=== PATIENT | male | born 1965 | race African-American/Black ===

== ENCOUNTER 2017-12-16 20:37 | Observation (INO) | payer SELFPAY ==
[~2017-12-16] VITALS: Ht 190.5 cm; Wt 90.5 kg
[2017-12-16 20:51] VITALS: BP 156/72; PULSE 97; RESP 25; TEMP 97.2; O2SAT 100
[2017-12-16 21:14] VITALS: BP 124/61; PULSE 88; RESP 18; O2SAT 100
[2017-12-16] MEDS ORDERED: SODIUM CHLORIDE 0.9% FLUSH 10 ML FLUSH IV FLUSH PRN (21:30)
[2017-12-16] MEDS ORDERED: ASPIRIN 81 MG CHEW TAB CHEW ONE (21:30)
[2017-12-16 21:44] VITALS: RESP 18
[2017-12-16 21:46] VITALS: BP 121/68; PULSE 77; RESP 20; O2SAT 99
[2017-12-16 22:18] LABS: AUTOMATED NEUTROPHIL # 2.5 TH/MM3 (1.8-7.7); BASOPHIL # 0.1 TH/MM3 (0-0.2); BASOPHIL % 0.8 % (0.0-2.0); EOSINOPHIL # 0.3 TH/MM3 (0-0.4); EOSINOPHIL % 3.7 % (0.0-4.0); HEMATOCRIT 40.5 % (39.0-51.0); HEMOGLOBIN 13.5 GM/DL (13.0-17.0); LYMPH % 52.8 % (9.0-44.0); LYMPHOCYTE # 3.9 TH/MM3 (1.0-4.8); MEAN CELL VOLUME 96.1 FL (80.0-100.0); MEAN CORPUSCULAR HGB CONC 33.3 % (32.0-36.0); MEAN PLATELET VOLUME 8.7 FL (7.0-11.0); MONO % 8.2 % (0.0-8.0); MONOCYTE # 0.6 TH/MM3 (0-0.9); NEUT % 34.5 % (16.0-70.0); PLATELET COUNT 196 TH/MM3 (150-450); RED BLOOD COUNT 4.22 MIL/MM3 (4.50-5.90); RED CELL DISTRIBUTION WIDTH 14.9 % (11.6-17.2); WHITE BLOOD COUNT 7.4 TH/MM3 (4.0-11.0)
[2017-12-16 22:35] LABS: ALBUMIN 3.7 GM/DL (3.4-5.0); ALT (GPT) 33 U/L (12-78); AST (GOT) 31 U/L (15-37); BICARBONATE 26.5 MEQ/L (21.0-32.0); BLOOD UREA NITROGEN 21 MG/DL (7-18); CALCIUM 8.6 MG/DL (8.5-10.1); CHLORIDE 108 MEQ/L (98-107); CREATININE 1.04 MG/DL (0.60-1.30); GLOMERULAR FILTRATION RATE 91 ML/MIN (>89); GLUCOSE,RANDOM 76 MG/DL (74-106); SODIUM (NA) 143 MEQ/L (136-145)
[2017-12-16 22:38] LABS: PROTHROMBIN TIME - PATIENT 10.3 SEC (9.8-11.6)
[2017-12-16 22:44] LABS: ALKALINE PHOSPHATASE 52 U/L (45-117); TOTAL BILIRUBIN ADULT 0.4 MG/DL (0.2-1.0); TROPONIN I LESS THAN 0.02 NG/ML (0.02-0.05)
--- NOTE | 2017-12-16 22:45 | RADRPT ---
EXAM DATE/TIME: 12/16/2017 22:13 [facility] COMPARISON: No previous studies available for comparison. INDICATIONS : Trauma; fall. RADIATION DOSE: 41.21 CTDIvol (mGy) MEDICAL HISTORY : Hypertension. Cardiovascular disease SURGICAL HISTORY : None. ENCOUNTER: Initial ACUITY: 1 day PAIN SCALE: 5/10 LOCATION: cranial TECHNIQUE: Multiple contiguous axial images were obtained of the head. Using automated exposure control and adj ustment of the mA and/or kV according to patient size, radiation dose was kept as low as reasonably a chievable to obtain optimal diagnostic quality images. DICOM format image data is available electro nically for review and comparison. FINDINGS: CEREBRUM: Extensive artifact from hardware right side of face. Ventricle size is appropriate. There is no cli nical hemorrhage. No extra-axial fluid collection appreciated. POSTERIOR FOSSA: The cerebellum and brainstem are intact. The 4th ventricle is midline. The cerebellopontine angle i s unremarkable. EXTRACRANIAL: The visualized portion of the orbits is intact. SKULL: The calvaria is intact. No evidence of skull fracture. CONCLUSION: Significant artifact from metal left side of face. Negative for an acute process. S ubtle subarachnoid hemorrhage in posterior fossa processes not be excluded. Nigel Eaton MD FACR on December 16, 2017 at 22:42 Board Certified Radiologist. This report was verified electronically.
--- NOTE | 2017-12-16 22:48 | RADRPT ---
EXAM DATE/TIME: 12/16/2017 22:13 [facility] COMPARISON: No previous studies available for comparison. INDICATIONS : Trauma; fall. RADIATION DOSE: 17.70 CTDIvol (mGy) MEDICAL HISTORY : Cardiovascular disease. Hypertension. SURGICAL HISTORY : None. ENCOUNTER: Initial ACUITY: 1 day PAIN SCALE: 5/10 LOCATION: Bilateral neck TECHNIQUE: Volumetric scanning of the cervical spine was performed. Multiplanar reconstructions in the sagittal, coronal and oblique axial planes were performed. Using automated exposure control and adjustment o f the mA and/or kV according to patient size, radiation dose was kept as low as reasonably achievable to obtain optimal diagnostic quality images. DICOM format image data is available electronically f or review and comparison. FINDINGS: VERTEBRAE: There is reversal of the normal cervical lordosis. Osteophytosis is present. ALIGNMENT: No evidence of subluxation. C2-C3: The bony spinal canal is normal in size. No evidence of disc bulge or herniation. The neural forami na are bilaterally patent. C3-C4: The bony spinal canal is normal in size. No evidence of disc bulge or herniation. The neural forami na are bilaterally patent. C4-C5: Mild uncinate ridging is present with mild bilateral neural foramina encroachment worse on the right than the left. C5-C6: Moderate uncinate ridging is present with moderate spinal stenosis and bilateral neural foramina encr oachment. C6-C7: The bony spinal canal is normal in size. No evidence of disc bulge or herniation. The neural forami na are bilaterally patent. C7-T1: The bony spinal canal is normal in size. No evidence of disc bulge or herniation. The neural forami na are bilaterally patent. CONCLUSION: Reversal of the normal cervical lordosis. Moderate degenerative change in the cervical spine. Spina l stenosis at C5-C6 is moderate. Nigel Eaton MD FACR on December 16, 2017 at 22:43 Board Certified Radiologist. This report was verified electronically.
--- NOTE | 2017-12-16 23:01 | PD ---
HPI Chief Complaint: Neuro Symptoms/ Deficits Time Seen by Provider: 21:06 Travel History International Travel<30 days: No Contact w/Intl Traveler<30days: No Traveled to known affect area: No History of Present Illness HPI Patient is a 52-year-old male smoker former diabetic but states he lost so much weight he does not need any treatment anymore presents emergency department for 2-3 day history of weakness of his left upper and left lower extremity as well as numbness and tingling on his face. Patient denies any injury, denies any headache denies any visual difficulties or facial weakness. He was hoping that he just had a strained muscle in his shoulder but does not recall any over exertion. Endorses some mild neck pain as well. States is never happened to him before. He does have a history of coronary artery disease. 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 Symptoms moderate, waxing and waning, context and associated signs and symptoms as above. PFSH Past Medical History Cardiovascular Problems: Yes (HTN, MIx4) Diabetes: Yes Patient Takes Glucophage: No Hypertension: Yes Immunizations Current: Yes Triglycerides - High: Yes Tetanus Vaccination: < 5 Years Influenza Vaccination: Yes Social History Alcohol Use: Yes (socially) Tobacco Use: Yes Substance Use: No Allergies-Medications (Allergen,Severity, Reaction): Coded Allergies: Sulfa (Sulfonamide Antibiotics) (Verified Allergy, Unknown, 12/16/17) erythromycin base (Verified Allergy, Unknown, 12/16/17) Review of Systems Except as stated in HPI: all other systems reviewed are Neg Physical Exam Narrative GENERAL: Well-developed well-nourished, smells of cigarette smoke in no obvious distress SKIN: Focused skin assessment warm/dry. HEAD: Atraumatic. Normocephalic. EYES: Pupils equal and round. No scleral icterus. No injection or drainage. ENT: No nasal bleeding or discharge. Mucous membranes pink and moist. NECK: Trachea midline. No JVD. CARDIOVASCULAR: Regular rate and rhythm. No murmur appreciated. RESPIRATORY: No accessory muscle use. Clear to auscultation. Breath sounds equal bilaterally. GASTROINTESTINAL: Abdomen soft, non-tender, nondistended. Hepatic and splenic margins not palpable. MUSCULOSKELETAL: No obvious deformities. No clubbing. No cyanosis. No edema. NEUROLOGICAL: Awake and alert. Cranial nerves II through XII grossly intact and nonfocal, 5 out of 5 strength in all 4 extremities, cerebellar testing negative, ambulates with an even narrow-base gait. PSYCHIATRIC: Appropriate mood and affect; insight and judgment normal. Data Data Last Documented VS Vital Signs Date Time Temp Pulse Resp B/P (MAP) Pulse Ox O2 Delivery O2 Flow Rate FiO2 12/16/17 21:46 77 20 121/68 (85) 99 Room Air 12/16/17 20:51 97.2 Orders Orders Complete Blood Count With Diff (12/16/17 21:28) Comprehensive Metabolic Panel (12/16/17 21:28) Creatine Kinase (Cpk) (12/16/17 21:28) Prothrombin Time / Inr (Pt) (12/16/17 21:28) Act Partial Throm Time (Ptt) (12/16/17 21:28) Troponin I (12/16/17 21:28) Thyroid Stimulating Hormone (12/16/17 21:28) Urinalysis - C+S If Indicated (12/16/17 21:28) Ct Brain W/O Iv Contrast(Rout) (12/16/17 21:28) Blood Glucose (12/16/17 21:28) Ecg Monitoring (12/16/17 21:28) Iv Access Insert/Monitor (12/16/17 21:28) Oximetry (12/16/17 21:28) Sodium Chloride 0.9% Flush (Ns Flush) (12/16/17 21:30) Aspirin Chew (Aspirin Chew) (12/16/17 21:30) Ct Cerv Spine W/O Contrast (12/16/17 ) CKMB (12/16/17 21:30) CKMB% (12/16/17 21:30) Admit Order (Ed Use Only) (12/17/17 ) Labs Laboratory Tests Test 12/16/17 21:30 White Blood Count 7.4 TH/MM3 Red Blood Count 4.22 MIL/MM3 Hemoglobin 13.5 GM/DL Hematocrit 40.5 % Mean Corpuscular Volume 96.1 FL Mean Corpuscular Hemoglobin 32.0 PG Mean Corpuscular Hemoglobin Concent 33.3 % Red Cell Distribution Width 14.9 % Platelet Count 196 TH/MM3 Mean Platelet Volume 8.7 FL Neutrophils (%) (Auto) 34.5 % Lymphocytes (%) (Auto) 52.8 % Monocytes (%) (Auto) 8.2 % Eosinophils (%) (Auto) 3.7 % Basophils (%) (Auto) 0.8 % Neutrophils # (Auto) 2.5 TH/MM3 Lymphocytes # (Auto) 3.9 TH/MM3 Monocytes # (Auto) 0.6 TH/MM3 Eosinophils # (Auto) 0.3 TH/MM3 Basophils # (Auto) 0.1 TH/MM3 CBC Comment DIFF FINAL Differential Comment Prothrombin Time 10.3 SEC Prothromb Time International Ratio 1.0 RATIO Activated Partial Thromboplast Time 25.7 SEC Blood Urea Nitrogen 21 MG/DL Creatinine 1.04 MG/DL Random Glucose 76 MG/DL Total Protein 7.0 GM/DL Albumin 3.7 GM/DL Calcium Level 8.6 MG/DL Alkaline Phosphatase 52 U/L Aspartate Amino Transf (AST/SGOT) 31 U/L Alanine Aminotransferase (ALT/SGPT) 33 U/L Total Bilirubin 0.4 MG/DL Sodium Level 143 MEQ/L Potassium Level 3.5 MEQ/L Chloride Level 108 MEQ/L Carbon Dioxide Level 26.5 MEQ/L Anion Gap 9 MEQ/L Estimat Glomerular Filtration Rate 91 ML/MIN Total Creatine Kinase 725 U/L Creatine Kinase MB 4.6 NG/ML Creatine Kinase MB % 0.6 % Troponin I LESS THAN 0.02 NG/ML Thyroid Stimulating Hormone 3rd Gen 0.355 uIU/ML MDM Medical Decision Making Medical Screen Exam Complete: Yes Emergency Medical Condition: Yes Differential Diagnosis TIA, stroke, neuropathy, neck strain. Narrative Course Patient room to the emergency department, nonfocal for me the patient certainly has signs symptoms concerning for TIA or showering type strokes. At this time the patient is nonfocal and no indication for stroke alert or TPA. Initial workup fairly negative, EKG negative, CT head negative. Basic labs are reassuring. Last [address] 12/16/172127 Signed Impressions: Service Date/Time: Saturday, December 16, 2017 22:13 - CONCLUSION: Significant artifact from metal left side of face. Negative for an acute process. Subtle subarachnoid hemorrhage in posterior fossa processes not be excluded. Nigel Eaton MD FACR Cervical Spine CT 12/16/17 0000 Signed Impressions: Service Date/Time: Saturday, December 16, 2017 22:13 - CONCLUSION: Reversal of the normal cervical lordosis. Moderate degenerative change in the cervical spine. Spinal stenosis at C5-C6 is moderate. Nigel Eaton MD FACR Patient discussed with Dr. Galeas for admission for TIA observation and she is agreeable. Patient is agreeable as well Diagnosis Primary Impression: TIA (transient ischemic attack) Admitting Information Admitting Physician Requests: Observation Condition: Stable Man Lo MD Dec 16, 2017 23:01
[2017-12-17 00:42] VITALS: BP 116/60; PULSE 76; RESP 18; O2SAT 98
--- NOTE | 2017-12-17 01:44 | HHI.HP ---
[facility] Primary Care Physician No Primary Care Physician Admission Diagnosis Poss TIA Diagnoses: Travel History International Travel<30 Days: No Contact w/Intl Traveler <30 Da: No Traveled to Known Affected Are: No History of Present Illness 52-year-old male with no significant past medical history presents to the emergency department for evaluation of left-sided numbness. The patient states around 3 PM yesterday he developed left-sided neck pain and left-sided facial, upper and lower extremity numbness. He denies any weakness. His symptoms have since resolved. His significant other witnessed the events and stated there was no facial droop or slurred speech. The patient denies chest pain/shortness of breath. No nausea/vomiting/diarrhea. No abdominal pain. No lateralizing signs/symptoms at this time. Review of Systems Except as stated in HPI: all other systems reviewed are Neg Past Family Social History Past Medical History None Past Surgical History Left leg Reported Medications None Allergies: Coded Allergies: Sulfa (Sulfonamide Antibiotics) (Verified Allergy, Unknown, 12/16/17) erythromycin base (Verified Allergy, Unknown, 12/16/17) Family History Both parents with CAD/DM Social History Smokes approximately half a pack per day. Occasional alcohol. Denies illicit drugs. Physical Exam Vital Signs Vital Signs Date Time Temp Pulse Resp B/P (MAP) Pulse Ox O2 Delivery O2 Flow Rate FiO2 12/17/17 00:42 76 18 116/60 (78) 98 Room Air 12/16/17 21:46 77 20 121/68 (85) 99 Room Air 12/16/17 21:44 18 12/16/17 21:14 88 18 100 Room Air 12/16/17 21:14 88 18 124/61 (82) 100 Room Air 12/16/17 20:51 97.2 97 25 156/72 (100) 100 Physical Exam GENERAL: male, lying in bed, sleeping SKIN: No rashes, ecchymoses or lesions. Cool and dry. HEAD: Atraumatic. Normocephalic. No temporal or scalp tenderness. EYES: Pupils equal round and reactive. Extraocular motions intact. No scleral icterus. No injection or drainage. ENT: Nose without bleeding, purulent drainage or septal hematoma. Throat without erythema, tonsillar hypertrophy or exudate. Uvula midline. Airway patent. NECK: Trachea midline. No JVD or lymphadenopathy. Supple, nontender, no meningeal signs. CARDIOVASCULAR: Regular rate and rhythm without murmurs, gallops, or rubs. RESPIRATORY: Clear to auscultation. Breath sounds equal bilaterally. No wheezes , rales, or rhonchi. GASTROINTESTINAL: Abdomen soft, non-tender, nondistended. No hepato-splenomegaly , or palpable masses. No guarding. MUSCULOSKELETAL: Extremities without clubbing, cyanosis, or edema. No joint tenderness, effusion, or edema noted. No calf tenderness. NEUROLOGICAL: Awake and alert. Cranial nerves II through XII intact. Motor and sensory within normal limits. Five out of 5 muscle strength in all muscle groups. Normal speech. Laboratory Laboratory Tests Test 12/16/17 21:30 White Blood Count 7.4 Red Blood Count 4.22 Hemoglobin 13.5 Hematocrit 40.5 Mean Corpuscular Volume 96.1 Mean Corpuscular Hemoglobin 32.0 Mean Corpuscular Hemoglobin Concent 33.3 Red Cell Distribution Width 14.9 Platelet Count 196 Mean Platelet Volume 8.7 Neutrophils (%) (Auto) 34.5 Lymphocytes (%) (Auto) 52.8 Monocytes (%) (Auto) 8.2 Eosinophils (%) (Auto) 3.7 Basophils (%) (Auto) 0.8 Neutrophils # (Auto) 2.5 Lymphocytes # (Auto) 3.9 Monocytes # (Auto) 0.6 Eosinophils # (Auto) 0.3 Basophils # (Auto) 0.1 CBC Comment DIFF FINAL Differential Comment Prothrombin Time 10.3 Prothromb Time International Ratio 1.0 Activated Partial Thromboplast Time 25.7 Blood Urea Nitrogen 21 Creatinine 1.04 Random Glucose 76 Total Protein 7.0 Albumin 3.7 Calcium Level 8.6 Alkaline Phosphatase 52 Aspartate Amino Transf (AST/SGOT) 31 Alanine Aminotransferase (ALT/SGPT) 33 Total Bilirubin 0.4 Sodium Level 143 Potassium Level 3.5 Chloride Level 108 Carbon Dioxide Level 26.5 Anion Gap 9 Estimat Glomerular Filtration Rate 91 Total Creatine Kinase 725 Creatine Kinase MB 4.6 Creatine Kinase MB % 0.6 Troponin I LESS THAN 0.02 Thyroid Stimulating Hormone 3rd Gen 0.355 Result Diagram: 12/16/17212912/16/172129 Caprini VTE Risk Assessment Caprini VTE Risk Assessment: No/Low Risk (score <= 1) Caprini Risk Assessment Model Point Value = 1 Point Value = 2 Point Value = 3 Point Value = 5 Age 41-60 Minor surgery BMI > 25 kg/m2 Swollen legs Varicose veins or History of unexplained or recurrent spontaneous Oral contraceptives or hormone replacement Sepsis (< 1 month) Serious lung disease, including pneumonia (< 1 month) Abnormal pulmonary function Acute myocardial infarction Congestive heart failure (< 1 month) History of inflammatory bowel disease Medical patient at bed rest Age 61-74 Arthroscopic surgery Major open surgery (> 45 min) Laparoscopic surgery (> 45 min) Malignancy Confined to bed (> 72 hours) Immobilizing plaster cast Central venous access Age >= 75 History of VTE Family history of VTE Factor V Leiden Prothrombin [id number] Lupus anticoagulant Anticardiolipin antibodies Elevated serum homocysteine Heparin-induced thrombocytopenia Other congenital or acquired thrombophilia Stroke (< 1 month) Elective arthroplasty Hip, pelvis, or leg fracture Acute spinal cord injury (< 1 month) Prophylaxis Regimen Total Risk Factor Score Risk Level Prophylaxis Regimen 0-1 Low Early ambulation 2 Moderate Order ONE of the following: *Sequential Compression Device (SCD) *Heparin 5000 units SQ BID 3-4 Higher Order ONE of the following medications: *Heparin 5000 units SQ TID *Enoxaparin/Lovenox 40 mg SQ daily (WT < 150 kg, CrCl > 30 mL/min) *Enoxaparin/Lovenox 30 mg SQ daily (WT < 150 kg, CrCl > 10-29 mL/min) *Enoxaparin/Lovenox 30 mg SQ BID (WT < 150 kg, CrCl > 30 mL/min) AND/OR *Sequential Compression Device (SCD) 5 or more Highest Order ONE of the following medications: *Heparin 5000 units SQ TID (Preferred with Epidurals) *Enoxaparin/Lovenox 40 mg SQ daily (WT < 150 kg, CrCl > 30 mL/min) *Enoxaparin/Lovenox 30 mg SQ daily (WT < 150 kg, CrCl > 10-29 mL/min) *Enoxaparin/Lovenox 30 mg SQ BID (WT < 150 kg, CrCl > 30 mL/min) AND *Sequential Compression Device (SCD) Assessment and Plan Assessment and Plan Assessment/plan: 1. TIA Patient with left-sided numbness, now resolved CT head with without acute intracranial process MRI/MRA brain, carotid ultrasound pending Neurology consulted, appreciate recommendations 2. Left-sided neck pain CT cervical spine significant for moderate spinal stenosis at C5-C6. FEN: NPO NS at 70 cc/hr Electrolytes: monitor and replete Wanda Mckenna MD Dec 17, 2017 01:44
[2017-12-17] MEDS ORDERED: GLUCAGON 1 MG/ML VIAL OTHER PRN (01:45)
[2017-12-17] MEDS ORDERED: DEXTROSE 50% IN WATER 50 ML VIAL(D50) IV PUSH PRN (01:45)
[2017-12-17] MEDS ORDERED: HEPARIN SODIUM - SQ 10,000 UNITS/ML VIAL SQ SCH (01:45)
[2017-12-17] MEDS ORDERED: SODIUM CHLORIDE 0.9% FLUSH 10 ML FLUSH IV FLUSH PRN (01:45)
[2017-12-17] MEDS ORDERED: SODIUM CHLOR 0.9% 1000 ML INJ 1,000 ML IV SCH (02:00)
[2017-12-17 02:10] VITALS: BP 107/59; PULSE 64; RESP 20; TEMP 98.1; O2SAT 98
[2017-12-17 05:00] VITALS: PULSE 65
[2017-12-17 06:08] VITALS: BP 100/61; PULSE 66; RESP 20; TEMP 97.6; O2SAT 98
[2017-12-17 07:42] VITALS: BP 116/63; PULSE 61; RESP 18; TEMP 97.5; O2SAT 98
[2017-12-17] MEDS ORDERED: INSULIN ASPART SUPPLEMENTAL SCALE SQ SCH (08:00)
[2017-12-17] MEDS ORDERED: SODIUM CHLORIDE 0.9% FLUSH 10 ML FLUSH IV FLUSH SCH (09:00)
[2017-12-17] MEDS ORDERED: ASPIRIN 325 MG TAB PO SCH (09:00)
[2017-12-17 09:17] LABS: BILIRUBIN, URINE NEG (NEG); BLOOD, URINE TRACE (NEG); GLUCOSE,URINE NEG (NEG); KETONE, URINE NEG (NEG); MUCUS URINE FEW /lpf (OCC); NITRITE,URINE NEG (NEG); URINE COLOR YELLOW (YELLW/STRAW); URINE LEUKOCYTE ESTERASE NEG (NEG)
--- NOTE | 2017-12-17 09:43 | RADRPT ---
EXAM DATE/TIME: 12/17/2017 08:30 [facility] COMPARISON: No previous studies available for comparison. INDICATIONS : Cerebrovascular accident. MEDICAL HISTORY : Hypertension. Myocardial infarction. Hyperlipidemia. Diabetes. Alcohol use. SURGICAL HISTORY : None. ENCOUNTER: Initial ACUITY: 1 week PAIN SCORE: 0/10 LOCATION: Bilateral neck PEAK SYSTOLIC VELOCITIES (cm/sec): ICA/CCA RATIO: Right: 0.5 Left: 0.9 ICA: Right: 61 Left: 82 CCA: Right: 116 Left: 95 ECA: Right: 76 Left: 69 VERTEBRAL: Right: 54 antegrade Left: 71 antegrade Elevated flow velocities and ICA/CCA ratios have been found to correlate with increased degrees of vessel stenosis, calculated as percentage of diameter relative to a normal segment of distal ICA/CCA FINDINGS: RIGHT CAROTID: No significant stenosis is visualized. The waveforms are within normal limits. LEFT CAROTID: No significant stenosis is visualized. The waveforms are within normal limits. VERTEBRAL ARTERIES: Antegrade flow is seen in both vertebral arteries. MISCELLANEOUS: None. CONCLUSION: Normal hemodynamic profile bilateral carotids. Marco Brooks MD on December 17, 2017 at 9:39 Board Certified Radiologist. This report was verified electronically.
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
--- NOTE | 2017-12-17 13:06 | PD.AMA ---
Against Medical Advice Note Diagnosis: (1) TIA (transient ischemic attack) Discharge Disposition: Against Medical Advice AMA Statement Patient Chico Vázquez has decided to leave the hospital against medical advice. This patient has the capacity to refuse care and understands the risks of leaving, including permanent disability and/or , and has had an opportunity to ask questions about his condition. The patient has been informed that he may return for care at any time, and follow up has been arranged/ advised. Notified by RN that patient leaving AMA because he wants to eat. He is reportedly AAOx4 per the nurse. By the time Dr. Beltran and myself arrived on the unit, the patient had already signed out and left AMA. Izabela Duffy PA-C Dec 17, 2017 1:06 pm
[2017-12-17 17:32] LABS: HEMOGLOBIN A1C 5.1 % (4.3-6.0)
--- NOTE | 2017-12-18 10:03 | EKG ---
Date Performed: 12/16/2017 Time Performed: 21:09:50 PTAGE: 52 years EKG: Sinus rhythm MINIMAL VOLTAGE CRITERIA FOR LVH, CONSIDER NORMAL VARIANT NONSPECIFIC T-WAVE ABNORMALITY BORDERLINE ECG NO PREVIOUS TRACING Diffuse ST segment elevation most consistent with repolarization fisher ge, but there is no prior tracing so pericarditis and possibly myocardial injury should be excluded c brittanie. DOCTOR: Josefina Ramirez Interpretating Date/Time 12/18/2017 10:02:47
== END 2017-12-17 14:04 | disposition left against medical advice (07) ==
LOC: NEPE 20:37 → EDBD 20:37 → NEDA 12-17 00:32 → NEDH 12-17 04:32 → NEPFCDU 12-17 11:33
PROVIDERS: ADMIT Internal Medicine; ATTEND Internal Medicine
DX: G45.9 Transient cerebral ischemic attack, unspecified (principal); M48.02 Spinal stenosis, cervical region; I25.10 Atherosclerotic heart disease of native coronary artery without angina pectoris; I10 Essential (primary) hypertension; I25.2 Old myocardial infarction; E11.9 Type 2 diabetes mellitus without complications; F17.200 Nicotine dependence, unspecified, uncomplicated
CPT/HCPCS: 70450; 72125; 80053; 81001; 82550; 82552; 82948; 83036; 84443; 84484; 85025; 85610; 85730; 93005; 93880; 97161; 99285; G0378; G8987; G8988; J7030